=== PATIENT | female | born 1985 | race Caucasian/White ===

== ENCOUNTER → 2022-05-12 08:00 | Outpatient (CLI) | payer OTHER ==
[~2022-05-12] VITALS: Ht 170.2 cm; Wt 85.7 kg
[~2022-05-12 08:00] MED LIST: CLONAZEPAM0.5 MG PO; LAMICTAL150 M1 PO; STRATTERA10 MG PO; ZOLOFT25 MG PO
== END | disposition home or self-care (01) ==
LOC: LAB 08:00 → EDSTATUS 13:15 → CIR.AMB 15:36
PROVIDERS: ATTEND Obstetrics & Gynecology
DX: N84.0 Polyp of corpus uteri (principal); N85.00 Endometrial hyperplasia, unspecified; N93.9 Abnormal uterine and vaginal bleeding, unspecified; Z01.812 Encounter for preprocedural laboratory examination